=== PATIENT | female | born 1945 | race Caucasian/White ===

== ENCOUNTER 2017-08-31 12:42 | Emergency (ER) | payer OTHER ==
[~2017-08-31] VITALS: Ht 157.5 cm; Wt 81.7 kg
[~2017-08-31 12:42] MED LIST: ALLO300 PO; ASPI81EC PO; BENA10 PO; BENA20 PO; BENAZEPRIL PO; CEPH500 PO; CYCL0.05OP; FOLIC ACID PO; HYDMOR2 PO; LEVSOD50 PO; OMEG1CAP30 PO; OMEP20ER PO; OXYACE5T PO; PRAVASTATIN SOD10 MG PO; PROM25 PO; Percocet 5-3251 EACH PO; TAMS.4ER PO; UBID10 PO; UBID100 PO; VITAMIN B PO; VITAMIN B12-FO1 EACH PO; VITAMIN D PO; VITAMIN D-32000 UNIT PO; ZINC PO; ZINC15 PO; [UNRECOGNIZED DRUG - OTHER] PO
[2017-08-31 12:53] LABS: Source, Urine Clean Catch
[2017-08-31 12:58] LABS: Bilirubin, Urine Neg (Neg); Nitrite, Urine Neg (Neg); Protein, Urine Neg (Neg); Specific Gravity, Urine 1.025 (1.003-1.022); Urobilinogen, Urine NORM (Normal)
[2017-08-31 13:14] LABS: Blood, Urine 4+ (Neg); Glucose Qualitative, Urine Neg (Neg); Ketones, Urine Neg (Neg); Leukocyte Esterase, Urine 2+ (Neg)
[2017-08-31 13:29] LABS: Appearance, Urine Cloudy (Clear); Color, Urine Yellow (P-Yellow)
[2017-08-31 13:30] LABS: Bacteria Rare /hpf; Squamous Epithelial Cells Rare /hpf (Few); Uric Acid Crystals Many /hpf
[2017-08-31 13:46] LABS: BASOPHILS ABSOLUTE AUTO 0.03 K/mm3 (0.00-0.23); BASOPHILS PERCENT AUTO 0 % (0-2); EOSINOPHILS ABSOLUTE AUTO 0.13 K/mm3 (0.00-0.68); EOSINOPHILS PERCENT AUTO 1 % (0-6); Hematocrit 36.9 % (33.0-51.0); IMMATURE GRAN ABSOLUTE AUTO 0.04 K/mm3 (0.00-0.10); IMMATURE GRAN PERCENT AUTO 0 % (0-1); LYMPHOCYTES ABSOLUTE AUTO 2.17 K/mm3 (0.84-5.20); LYMPHOCYTES PERCENT AUTO 16 % (21-46); MONOCYTES ABSOLUTE AUTO 0.64 K/mm3 (0.16-1.47); MONOCYTES PERCENT AUTO 5 % (4-13); Mean Corpuscular HGB 32.2 pg (26.0-34.0); Mean Corpuscular HGB Conc 32.5 g/dL (31.5-36.5); Mean Corpuscular Volume 99 fL (80-100); Mean Platelet Volume 10.9 fL (9.1-12.4); NEUTROPHILS ABSOLUTE AUTO 10.97 K/mm3 (1.96-9.15); NEUTROPHILS PERCENT AUTO 79 % (41-73); Platelet Count 215 K/mm3 (150-400); RDW Standard Deviation 43.9 fL (35.1-46.3); Red Blood Cell Count 3.73 M/mm3 (3.80-5.20); White Blood Cell Count 13.98 K/mm3 (4.00-11.30)
[2017-08-31] MEDS ORDERED: Cipro500 MG PO (13:49)
[2017-08-31] MEDS ORDERED: HYDR1TAB94 PO (13:49)
[2017-08-31 13:52] LABS: Anion Gap 7 mmol/L (6-16); Blood Urea Nitrogen 21 mg/dL (8-24); Bun/Creatinine Ratio 26.6 (12.0-20.0); CO2, Blood 27 mmol/L (21-32); Calcium, Blood 8.9 mg/dL (8.5-10.1); Chloride, Blood 109 mmol/L (98-108); Creatinine, Blood 0.79 mg/dL (0.40-1.00); Glomerular Filtration Rate >60 (60-); Glucose, Blood 97 mg/dL (70-99); Potassium, Blood 4.4 mmol/L (3.5-5.5); Sodium, Blood 143 mmol/L (136-145)
[2017-08-31 15:43] LABS: Alanine Aminotransfer (ALT/SGP 20 U/L (12-78); Albumin, Blood 3.4 g/dL (3.4-5.0); Albumin/Globulin Ratio 0.9 (0.8-1.8); Alk Phos 107 U/L (50-136); Aspartate Aminotrans (AST/SGOT 16 U/L (12-37); Bilirubin, Total 0.2 mg/dL (0.1-1.0); Globulin, Blood 3.6 g/dL (2.2-4.0)
== END 2017-08-31 16:22 | disposition home or self-care (01) ==
LOC: ER 12:42
PROVIDERS: Emergency Medicine
DX: N13.2 Hydronephrosis with renal and ureteral calculous obstruction (principal); N39.0 Urinary tract infection, site not specified; Z88.8 Allergy status to other drugs, medicaments and biological substances; Z79.899 Other long term (current) drug therapy; Z79.82 Long term (current) use of aspirin
CPT/HCPCS: 74176; 80048; 80053; 81001; 83690; 85025; 87077; 87086; 87186; 93005; 93010; 96374; 96375; 96376; 99284; J1170; J2405

== ENCOUNTER 2019-03-14 22:00 | Emergency (ER) | payer MEDICARE ==
[~2019-03-14] VITALS: Ht 157.5 cm; Wt 83.9 kg
[~2019-03-14 22:00] MED LIST changes: +Cipro500 MG PO; +HYDR1TAB94 PO
[2019-03-14 22:28] LABS: BASOPHILS ABSOLUTE AUTO 0.03 K/mm3 (0.00-0.23); BASOPHILS PERCENT AUTO 0 % (0-2); EOSINOPHILS ABSOLUTE AUTO 0.31 K/mm3 (0.00-0.68); EOSINOPHILS PERCENT AUTO 3 % (0-6); Hematocrit 33.3 % (33.0-51.0); IMMATURE GRAN ABSOLUTE AUTO 0.03 K/mm3 (0.00-0.10); IMMATURE GRAN PERCENT AUTO 0 % (0-1); LYMPHOCYTES ABSOLUTE AUTO 2.86 K/mm3 (0.84-5.20); LYMPHOCYTES PERCENT AUTO 28 % (21-46); MONOCYTES ABSOLUTE AUTO 0.66 K/mm3 (0.16-1.47); MONOCYTES PERCENT AUTO 7 % (4-13); Mean Corpuscular HGB 33.2 pg (26.0-34.0); Mean Corpuscular Volume 101 fL (80-100); NEUTROPHILS ABSOLUTE AUTO 6.34 K/mm3 (1.96-9.15); NEUTROPHILS PERCENT AUTO 62 % (41-73); Platelet Count 204 K/mm3 (150-400); RDW Standard Deviation 44.9 fL (35.1-46.3); Red Blood Cell Count 3.31 M/mm3 (3.80-5.20); White Blood Cell Count 10.23 K/mm3 (4.00-11.30)
[2019-03-14 22:32] LABS: Source, Urine Clean Catch
[2019-03-14 22:35] LABS: Bilirubin, Urine Neg (Neg); Blood, Urine 5+ (Neg); Glucose Qualitative, Urine Neg (Neg); Ketones, Urine Neg (Neg); Leukocyte Esterase, Urine 3+ (Neg); Nitrite, Urine Neg (Neg); Protein, Urine 1+ (Neg); Specific Gravity, Urine 1.025 (1.003-1.022); Urobilinogen, Urine NORM (Normal)
[2019-03-14 22:40] LABS: Appearance, Urine Clear (Clear); Color, Urine Yellow (P-Yellow)
[2019-03-14 22:41] LABS: Bacteria Many /hpf; Squamous Epithelial Cells Rare /hpf (Few)
[2019-03-14 22:42] LABS: Uric Acid Crystals Mod /hpf
[2019-03-14 22:46] LABS: Alanine Aminotransfer (ALT/SGP 25 U/L (12-78); Albumin, Blood 3.3 g/dL (3.4-5.0); Albumin/Globulin Ratio 1.1 (0.8-1.8); Alk Phos 93 U/L (50-136); Anion Gap 5 mmol/L (6-16); Aspartate Aminotrans (AST/SGOT 17 U/L (12-37); Bilirubin, Total 0.2 mg/dL (0.1-1.0); Blood Urea Nitrogen 20 mg/dL (8-24); Bun/Creatinine Ratio 23.1 (12.0-20.0); CO2, Blood 30 mmol/L (21-32); Calcium, Blood 9.1 mg/dL (8.5-10.1); Chloride, Blood 111 mmol/L (98-108); Creatinine, Blood 0.87 mg/dL (0.40-1.00); Globulin, Blood 3.1 g/dL (2.2-4.0); Glomerular Filtration Rate >60 (60-); Glucose, Blood 125 mg/dL (70-99); Potassium, Blood 3.7 mmol/L (3.5-5.5); Sodium, Blood 146 mmol/L (136-145); Total Protein, Blood 6.4 g/dL (6.4-8.2)
[2019-03-14] MEDS ORDERED: Flomax0.4 MG PO (23:51)
[2019-03-14] MEDS ORDERED: Roxicodone5 MG PO (23:51)
[2019-03-14] MEDS ORDERED: ONDA4ODT MM (23:51)
== END 2019-03-15 00:07 | disposition home or self-care (01) ==
LOC: ER 22:00
PROVIDERS: Emergency Medicine
DX: N13.2 Hydronephrosis with renal and ureteral calculous obstruction (principal); Z88.1 Allergy status to other antibiotic agents; Z79.899 Other long term (current) drug therapy; Z79.82 Long term (current) use of aspirin; Z87.442 Personal history of urinary calculi
CPT/HCPCS: 74176; 80053; 81001; 85025; 87086; 99284-25; A9270; A9270-GY

== ENCOUNTER 2020-03-15 21:17 | Emergency (ER) | payer OTHER ==
[~2020-03-15] VITALS: Ht 157.5 cm; Wt 73.9 kg
[~2020-03-15 21:17] MED LIST changes: +Flomax0.4 MG PO; +ONDA4ODT MM; +Roxicodone5 MG PO
[2020-03-15 22:07] LABS: Source, Urine Clean Catch
[2020-03-15 22:10] LABS: Appearance, Urine Clear (Clear); Bilirubin, Urine Neg (Neg); Blood, Urine 5+ (Neg); Color, Urine Yellow (P-Yellow); Glucose Qualitative, Urine Neg (Neg); Ketones, Urine 1+ (Neg); Leukocyte Esterase, Urine 2+ (Neg); Nitrite, Urine Neg (Neg); Protein, Urine 2+ (Neg); Urobilinogen, Urine NORM (Normal)
[2020-03-15 22:17] LABS: Bacteria Few /hpf; Mucus Light (0-Heavy); Red Blood Cells, Urine TNTC /hpf (0-2); Squamous Epithelial Cells Few /hpf (Few)
[2020-03-15 22:19] LABS: Alanine Aminotransfer (ALT/SGP 23 U/L (12-78); Albumin, Blood 3.8 g/dL (3.4-5.0); Alk Phos 143 U/L (50-136); Anion Gap 4 mmol/L (6-16); Aspartate Aminotrans (AST/SGOT 22 U/L (12-37); Bilirubin, Total 0.3 mg/dL (0.1-1.0); Blood Urea Nitrogen 22 mg/dL (8-24); Bun/Creatinine Ratio 26.1 (12.0-20.0); CO2, Blood 30 mmol/L (21-32); Calcium, Blood 9.5 mg/dL (8.5-10.1); Chloride, Blood 110 mmol/L (98-108); Creatinine, Blood 0.84 mg/dL (0.40-1.00); Globulin, Blood 3.8 g/dL (2.2-4.0); Glomerular Filtration Rate >60 (60-); Glucose, Blood 110 mg/dL (70-99); Potassium, Blood 4.1 mmol/L (3.5-5.5); Sodium, Blood 144 mmol/L (136-145); Total Protein, Blood 7.6 g/dL (6.4-8.2)
[2020-03-15 22:20] LABS: BASOPHILS ABSOLUTE AUTO 0.09 K/mm3 (0.00-0.23); BASOPHILS PERCENT AUTO 1 % (0-2); EOSINOPHILS ABSOLUTE AUTO 0.62 K/mm3 (0.00-0.68); EOSINOPHILS PERCENT AUTO 4 % (0-6); Hematocrit 38.4 % (33.0-51.0); Hemoglobin 12.6 g/dL (11.5-16.0); IMMATURE GRAN ABSOLUTE AUTO 0.07 K/mm3 (0.00-0.10); IMMATURE GRAN PERCENT AUTO 1 % (0-1); LYMPHOCYTES ABSOLUTE AUTO 5.23 K/mm3 (0.84-5.20); LYMPHOCYTES PERCENT AUTO 35 % (21-46); MONOCYTES PERCENT AUTO 6 % (4-13); Mean Corpuscular HGB 32.5 pg (26.0-34.0); Mean Corpuscular HGB Conc 32.8 g/dL (31.5-36.5); Mean Corpuscular Volume 99 fL (80-100); Mean Platelet Volume 11.6 fL (9.1-12.4); NEUTROPHILS ABSOLUTE AUTO 7.91 K/mm3 (1.96-9.15); NEUTROPHILS PERCENT AUTO 53 % (41-73); NRBC ABSOLUTE 0.07 K/mm3 (0.00-0.02); NRBC Auto 0.5 /100 WBC (0.0-0.2); Platelet Count 261 K/mm3 (150-400); RDW Coefficient Variation 12.2 % (11.7-14.2); RDW Standard Deviation 44.1 fL (35.1-46.3); Red Blood Cell Count 3.88 M/mm3 (3.80-5.20); White Blood Cell Count 14.82 K/mm3 (4.00-11.30)
[2020-03-16] MEDS ORDERED: ONDA4ODT MM (00:17)
[2020-03-16] MEDS ORDERED: Roxicodone5 MG PO (00:17)
== END 2020-03-16 00:52 | disposition home or self-care (01) ==
LOC: ER 21:17
PROVIDERS: Emergency Medicine
DX: N13.2 Hydronephrosis with renal and ureteral calculous obstruction (principal); R01.1 Cardiac murmur, unspecified; Z88.1 Allergy status to other antibiotic agents; Z91.09 Other allergy status, other than to drugs and biological substances; Z79.82 Long term (current) use of aspirin; Z79.899 Other long term (current) drug therapy; E03.9 Hypothyroidism, unspecified
CPT/HCPCS: 36415; 74176; 80053; 81001; 83690; 85025; 87086; 96365; 96375; 96376; 99284-25; A9270; A9270-GY; J0696; J1885; J2405

== ENCOUNTER → 2020-12-26 | Outpatient (CLI) | payer OTHER ==
[2020-12-27 09:59] LABS: Stool Occult Bld Immuno 1 Negative (NEGATIVE); Stool Occult Bld Immuno 2 Negative (NEGATIVE)
== END | disposition home or self-care (01) ==
LOC: LAB SHORT 17:52
PROVIDERS: Internal Medicine Gastroenterology
DX: Z09 Encounter for follow-up examination after completed treatment for conditions other than malignant neoplasm (principal); Z86.010 Personal history of colon polyps
CPT/HCPCS: 82274

== ENCOUNTER → 2022-08-28 | Outpatient (CLI) | payer OTHER ==
[2022-08-28 17:22] LABS: Source, Urine Voided
[2022-08-28 19:09] LABS: Uric Acid Crystals Few /hpf
[2022-08-28 19:10] LABS: Bacteria Mod /hpf; Red Blood Cells, Urine 0-2 /hpf (0-2); Squamous Epithelial Cells Few /hpf (Few)
== END | disposition home or self-care (01) ==
LOC: LAB 17:20 → LAB SHORT 17:20
PROVIDERS: Family Medicine
DX: R35.1 Nocturia (principal)
CPT/HCPCS: 81015; 87077; 87086; 87186

== ENCOUNTER 2023-04-16 20:56 | Emergency (ER) | payer OTHER ==
[~2023-04-16] VITALS: Ht 154.9 cm; Wt 81.7 kg
[2023-04-16 21:32] LABS: BASOPHILS ABSOLUTE AUTO 0.05 K/mm3 (0.00-0.23); BASOPHILS PERCENT AUTO 0 % (0-2); EOSINOPHILS ABSOLUTE AUTO 0.15 K/mm3 (0.00-0.68); EOSINOPHILS PERCENT AUTO 1 % (0-6); Hematocrit 36.6 % (33.0-51.0); IMMATURE GRAN ABSOLUTE AUTO 0.03 K/mm3 (0.00-0.10); IMMATURE GRAN PERCENT AUTO 0 % (0-1); LYMPHOCYTES ABSOLUTE AUTO 3.04 K/mm3 (0.84-5.20); LYMPHOCYTES PERCENT AUTO 23 % (21-46); MONOCYTES ABSOLUTE AUTO 0.92 K/mm3 (0.16-1.47); MONOCYTES PERCENT AUTO 7 % (4-13); Mean Corpuscular HGB 31.7 pg (26.0-34.0); Mean Corpuscular HGB Conc 32.8 g/dL (31.5-36.5); Mean Corpuscular Volume 97 fL (80-100); Mean Platelet Volume 11.1 fL (9.1-12.4); NEUTROPHILS ABSOLUTE AUTO 8.78 K/mm3 (1.96-9.15); NEUTROPHILS PERCENT AUTO 68 % (41-73); Platelet Count 228 K/mm3 (150-400); RDW Coefficient Variation 11.9 % (11.7-14.2); RDW Standard Deviation 42.5 fL (35.1-46.3); Red Blood Cell Count 3.79 M/mm3 (3.80-5.20); White Blood Cell Count 12.97 K/mm3 (4.00-11.30)
[2023-04-16 21:47] LABS: Albumin, Blood 3.4 g/dL (3.4-5.0); Bilirubin, Total 0.2 mg/dL (0.1-1.0); Bun/Creatinine Ratio 20.7 (12.0-20.0); Calcium, Blood 9.1 mg/dL (8.5-10.1); Creatinine, Blood 1.16 mg/dL (0.40-1.00); Globulin, Blood 3.5 g/dL (2.2-4.0); Potassium, Blood 4.6 mmol/L (3.5-5.5); Total Protein, Blood 6.9 g/dL (6.4-8.2)
[2023-04-16 23:27] LABS: Source, Urine Clean Catch
[2023-04-16 23:29] LABS: Appearance, Urine Hazy (Clear); Bilirubin, Urine Neg (Neg); Blood, Urine 5+ (Neg); Color, Urine Yellow (P-Yellow); Glucose Qualitative, Urine Neg (Neg); Ketones, Urine Neg (Neg); Leukocyte Esterase, Urine 2+ (Neg); Nitrite, Urine Neg (Neg); Protein, Urine Neg (Neg); Urobilinogen, Urine NORM (Normal)
[2023-04-17 00:29] LABS: Red Blood Cells, Urine 25-50 /hpf (0-2)
[2023-04-17 00:30] LABS: Bacteria Few /hpf; Hyaline Casts 0-2 /lpf (0-2); Mucus Light (0-Heavy); Squamous Epithelial Cells Few /hpf (Few)
[2023-04-17] MEDS ORDERED: CEFD300 PO (01:43)
[2023-04-17 02:27] VITALS: BP 146/65
== END 2023-04-17 02:52 | disposition home or self-care (01) ==
LOC: ER 20:56
PROVIDERS: Physician Assistant
DX: N13.2 Hydronephrosis with renal and ureteral calculous obstruction (principal); Z79.82 Long term (current) use of aspirin; Z79.890 Hormone replacement therapy; Z79.899 Other long term (current) drug therapy; Z91.041 Radiographic dye allergy status; Z88.8 Allergy status to other drugs, medicaments and biological substances; Z88.1 Allergy status to other antibiotic agents
CPT/HCPCS: 74176; 80053; 81001; 85025; 87086; 96365; 99284-25; J0696

== ENCOUNTER 2023-07-07 16:50 | Emergency (ER) | payer OTHER ==
[~2023-07-07] VITALS: Ht 154.9 cm; Wt 81.7 kg
[~2023-07-07 16:50] MED LIST changes: +CEFD300 PO
[2023-07-07 17:05] LABS: Source, Urine Clean Catch
[2023-07-07 17:10] LABS: Appearance, Urine Cloudy (Clear); Bilirubin, Urine Neg (Neg); Blood, Urine 5+ (Neg); Color, Urine Yellow (P-Yellow); Glucose Qualitative, Urine Neg (Neg); Ketones, Urine Neg (Neg); Leukocyte Esterase, Urine 1+ (Neg); Nitrite, Urine Neg (Neg); Protein, Urine 2+ (Neg); Specific Gravity, Urine 1.025 (1.003-1.022); Urobilinogen, Urine NORM (Normal)
[2023-07-07 17:13] LABS: BASOPHILS ABSOLUTE AUTO 0.04 K/mm3 (0.00-0.23); BASOPHILS PERCENT AUTO 0 % (0-2); EOSINOPHILS ABSOLUTE AUTO 0.14 K/mm3 (0.00-0.68); EOSINOPHILS PERCENT AUTO 1 % (0-6); Hematocrit 37.6 % (33.0-51.0); Hemoglobin 12.3 g/dL (11.5-16.0); IMMATURE GRAN ABSOLUTE AUTO 0.04 K/mm3 (0.00-0.10); IMMATURE GRAN PERCENT AUTO 0 % (0-1); LYMPHOCYTES ABSOLUTE AUTO 2.71 K/mm3 (0.84-5.20); LYMPHOCYTES PERCENT AUTO 22 % (21-46); MONOCYTES ABSOLUTE AUTO 0.78 K/mm3 (0.16-1.47); MONOCYTES PERCENT AUTO 7 % (4-13); Mean Corpuscular HGB 32.6 pg (26.0-34.0); Mean Corpuscular HGB Conc 32.7 g/dL (31.5-36.5); Mean Corpuscular Volume 100 fL (80-100); Mean Platelet Volume 10.7 fL (9.1-12.4); NEUTROPHILS ABSOLUTE AUTO 8.37 K/mm3 (1.96-9.15); NEUTROPHILS PERCENT AUTO 69 % (41-73); Platelet Count 264 K/mm3 (150-400); RDW Coefficient Variation 12.5 % (11.7-14.2); RDW Standard Deviation 45.5 fL (35.1-46.3); Red Blood Cell Count 3.77 M/mm3 (3.80-5.20); White Blood Cell Count 12.08 K/mm3 (4.00-11.30)
[2023-07-07 17:36] LABS: Albumin, Blood 3.3 g/dL (3.4-5.0); Albumin/Globulin Ratio 0.9 (0.8-1.8); Bilirubin, Total 0.1 mg/dL (0.1-1.0); Bun/Creatinine Ratio 22.6 (12.0-20.0); Calcium, Blood 9.1 mg/dL (8.5-10.1); Creatinine, Blood 0.93 mg/dL (0.40-1.00); Globulin, Blood 3.5 g/dL (2.2-4.0); Potassium, Blood 4.1 mmol/L (3.5-5.5); Total Protein, Blood 6.8 g/dL (6.4-8.2)
[2023-07-07 17:36] LABS: Bacteria Few /hpf; Red Blood Cells, Urine 50-100 /hpf (0-2); Squamous Epithelial Cells Few /hpf (Few)
[2023-07-07 17:37] LABS: Amorphous Light (0-Heavy); Mucus Light (0-Heavy); Transitional Epithelial Cells Rare /hpf (0-Rare)
[2023-07-07] MEDS ORDERED: SULTRIDS PO (22:19)
[2023-07-07 22:34] VITALS: BP 145/65
== END 2023-07-07 22:34 | disposition home or self-care (01) ==
LOC: ER 16:50
PROVIDERS: Physician Assistant
DX: N13.2 Hydronephrosis with renal and ureteral calculous obstruction (principal); Z88.1 Allergy status to other antibiotic agents; Z91.041 Radiographic dye allergy status; Z79.899 Other long term (current) drug therapy; Z79.82 Long term (current) use of aspirin; Z87.442 Personal history of urinary calculi
CPT/HCPCS: 76770; 80053; 81001; 85025; 87086; 99285-25; A9270

== ENCOUNTER → 2023-07-23 | Outpatient (CLI) | payer OTHER ==
[~2023-07-23] MED LIST changes: +SULTRIDS PO
== END | disposition home or self-care (01) ==
LOC: LAB 12:53 → LAB SHORT 12:53
DX: R30.0 Dysuria (principal)
CPT/HCPCS: 87086

== ENCOUNTER → 2023-08-10 | Outpatient (CLI) | payer OTHER ==
[2023-08-11 12:23] LABS: Stool Occult Bld Immuno 1 Negative (NEGATIVE)
== END ==
LOC: LAB 11:00 → LAB SHORT 11:00
PROVIDERS: Family Medicine
DX: Z12.11 Encounter for screening for malignant neoplasm of colon (principal)
CPT/HCPCS: G0328

== ENCOUNTER → 2024-01-30 | Outpatient (CLI) | payer OTHER | LOC: LAB 12:58 → LAB SHORT 12:58 | DX: N39.0 Urinary tract infection, site not specified (principal) | CPT/HCPCS: 87077; 87086; 87186 ==

== ENCOUNTER → 2024-06-20 | Outpatient (CLI) | payer OTHER ==
[2024-06-20 12:54] LABS: Stool Occult Bld Immuno 1 Negative (NEGATIVE)
== END ==
LOC: LAB 08:40 → LAB SHORT 08:40
PROVIDERS: Family Medicine
DX: D53.9 Nutritional anemia, unspecified (principal)
CPT/HCPCS: G0328

== ENCOUNTER → 2024-09-14 | Outpatient (CLI) | payer OTHER | END | disposition home or self-care (01) | LOC: LAB SHORT 13:38 → PLD 13:38 → LAB 13:38 | DX: L57.0 Actinic keratosis (principal); H93.92 Unspecified disorder of left ear | CPT/HCPCS: 88305 ==